=== PATIENT | male | born 1945 ===

== ENCOUNTER → 2024-09-21 10:43 | Outpatient (BNVA) | payer OTHER, SELFPAY | PROVIDERS: PCP Family Medicine; Referring Provider Emergency Medicine; Visit Provider Specialist | DX: G20.B2 Parkinson's disease with dyskinesia, with fluctuations (principal) | CPT/HCPCS: 99205 ==

== ENCOUNTER → 2024-12-29 12:29 | Outpatient (BNVA) | payer OTHER, SELFPAY | PROVIDERS: PCP Family Medicine; Visit Provider Specialist | DX: R25.1 Tremor, unspecified (principal) | CPT/HCPCS: 99214 ==